=== PATIENT | female | born 1995 | race African-American/Black ===

== ENCOUNTER 2018-08-22 08:03 | Emergency (ER) | payer SELFPAY ==
[2018-08-22] MEDS ORDERED: LIDOCAINE 1% INJ-PF (10 MG/ML) 30 ML SDV INJ ONE (09:00)
--- NOTE | 2018-08-22 09:06 | ER Document Report ---
HPI - HPI Patient complains to provider of: abscess Time Seen by Provider: 08/22/18 08:50 Onset: Other - one year but worse since 08/17 Quality of pain: Other - sore Severity: Moderate Pain Level: 3 Context: Patient presents emergency department with complaints of abscess between her breast. Patient reports area has been there for over a year but since August 17 the area has become painful and red. She did attempt to put a hot pack on the area yesterday but the area became worse. She denies history of MRSA. She denies fever vomiting diarrhea. No past medical history of diabetes or breast cancer. Associated Symptoms: None Exacerbated by: Denies Relieved by: Denies Similar symptoms previously: No Recently seen / treated by doctor: No - REPRODUCTIVE Reproductive: DENIES: : Past Medical History - General Information source: Patient Last Menstrual Period: Last month - Social History Smoking Status: Never Smoker Cigarette use (# per day): No Chew tobacco use (# tins/day): No Frequency of alcohol use: None Drug Abuse: None Lives with: Family Family History: Reviewed & Not Pertinent. denies: Malignancy Patient has suicidal ideation: No Patient has homicidal ideation: No - Medical History Medical History: Negative Renal/ Medical History: Denies: Hx Peritoneal Dialysis Surgical Hx: Negative - Immunizations Hx Diphtheria, Pertussis, Tetanus Vaccination: Yes Vertical Provider Document - CONSTITUTIONAL Agree With Documented VS: Yes Exam Limitations: No Limitations General Appearance: WD/WN, No Apparent Distress - INFECTION CONTROL TRAVEL OUTSIDE OF THE [place] IN LAST 30 DAYS: No - HEENT HEENT: Atraumatic, Normocephalic - NECK Neck: Normal Inspection, Supple - RESPIRATORY Respiratory: Breath Sounds Normal, No Respiratory Distress - CARDIOVASCULAR Cardiovascular: Regular Rate - MUSCULOSKELETAL/EXTREMETIES Musculoskeletal/Extremeties: MAEW, FROM - NEURO Level of Consciousness: Awake, Alert, Appropriate Motor/Sensory: No Motor Deficit - DERM Integumentary: Warm, Dry, Abscess Adult Front & Back Diagram: 1 - Small fluctuant erythema abscess noted to the right proximal breast, when I did squeeze the area some discharge obtained culture sent Course - Re-evaluation Re-evalutation: 12/27/18 09:04 Will drain the area placed patient on Septra. Patient was instructed on allergic reaction signs and symptoms to Septra. Patient was also instructed on the importance of monitoring the area return if it became larger or definitely follow-up with a primary care provider. She verbalized understanding as well as her mother at the bedside. - Vital Signs Vital signs: Temp Pulse Resp BP Pulse Ox 98.1 F 92 18 126/82 H 98 08/22/18 08:09 08/22/18 08:09 08/22/18 08:09 08/22/18 08:09 08/22/18 08:09 Procedures - Incision and Drainage RIGHT BREAST Time completed: 09:36 Type: Simple Anesthetic type: 1% Lidocaine Blade size: 11 I&D procedure: Shurclens applied Incision Method: Incision made by scalpel - SMALL VERTICAL INCISION MADE, AREA PROBED Amount/type of drainage: LARGE AMOUNT WHITE/CREAM FOUL SMELLING DISCHARGE Notes: 08/22/18 09:37 Patient tolerated procedure well. Instructed again on the importance of keeping the area clean return to the ED for increase in size pain redness. She verbalized understanding. Discharge - Discharge Clinical Impression: Abscess Condition: Stable Disposition: HOME, SELF-CARE Instructions: Abscess ([facility]), Acetaminophen, Post Incision and Drainage, Trimethoprim-Sulfa ([facility]) Additional Instructions: *You have been treated for an abscess with incision and drainage *Take medication as prescribed *Monitor the site for signs of increasing infection such as increasing pain, redness, swelling, warmth *Keep the site clean *Follow up with a primary care provider within 5 days for recheck *Return to ED for signs of increasing infection, worsening condition, changes, needs Prescriptions: Sulfamethoxazole/Trimethoprim [Bactrim Ds Tablet] 1 each PO BID #20 tablet
[2018-08-22 09:58] VITALS: BP 123/63
== END 2018-08-22 09:57 | disposition home or self-care (01) ==
LOC: ER 08:03
DX: N61.1 Abscess of the breast and nipple (principal)
CPT/HCPCS: 99283; 87070; 87205; 87075; 87077; 10060; J3490